=== PATIENT | male | born 1955 | race Caucasian/White ===

== ENCOUNTER 2021-06-16 00:54 | Day surgery (SDC) | payer OTHER, SELFPAY ==
[2021-06-03 13:36] VITALS: BMI 33.5
[2021-06-16 07:51] VITALS: BP 154/104; PULSE 100; RESP 18; TEMP 36.1; O2SAT 95; BMI 31.8
[2021-06-16] MEDS: LACTATED RINGERS 1,000 ML 150 ML IV CONT (08:01)
--- NOTE | 2021-06-16 08:13 | WPDGICN ---
Assessment and Plan Assessment and plan (1) History of colon polyps: Code(s): Z86.010 - Personal history of colonic polyps Status: Acute Assessment and Plan: Patient has a prior history of colon polyps. Plan is for surveillance colonoscopy now and it continued intervals in the future. GI Consult Note Consult date/time: 06/16/21 08:13 HPI: Tanvir Land is a 66 year old male Presents for screening colonoscopy. Patient has a prior history of colon polyps. Patient's current weight appetite and bowel movements are normal. He denies abdominal pain. He has had no bleeding. His last exam was 5 years ago. Review of Systems Review of Systems: All systems reviewed & are unremarkable except as noted in HPI and below [facility] Family History Family History (Updated 06/06/16 @ 08:49 by DOCTOR UNKNOWN) Sibling Family history of aortic aneurysm Family history of genetic disorder Other Acute myocardial infarction Family history of cardiovascular disease Social History Social History (Updated 05/30/21 @ 14:23 by Aurea Munroe MA) Smoking status: Never smoker Second hand tobacco smoke exposure: No Alcohol intake: current Drinks per week: 5 Alcohol use details: Whisky Substance use: never Substance use type: does not use Living arrangements: with family 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 Gender identity (if verbalized by the patient): Male Sexual Orientation (if Verbalized by the Patient): Straight or Heterosexual Spiritual care concerns: No Agree to blood products: Yes Meds Home Medications and Allergies Home Medications Medication Instructions Recorded Confirmed Type atorvastatin 10 mg tablet 10 mg PO DAILY 05/30/21 06/03/21 History benazepril 20 mg tablet 40 mg PO DAILY 05/30/21 06/03/21 History prednisone 10 mg tablet See Rx Instructions PO DAILY #52 05/30/21 06/03/21 Rx tablet Allergies Allergy/AdvReac Type Severity Reaction Status Date / Time No Known Allergies Allergy Verified 06/16/21 07:50 Vital Signs Vital Signs - 24 hr 06/16/21 07:51 Temperature 97 F L Pulse Rate 100 Respiratory Rate 18 Blood Pressure 154/104 H Pulse Oximetry 95 Exam Narrative: Physical exam reveals patient be alert. Vital signs stable. HEENT exam is unremarkable. Patient is anicteric. Lungs are clear to auscultation and percussion. Heart is without murmur or extra sounds. Abdomen bowel sounds present soft nontender with no hepatosplenomegaly. Digital external rectal exam is normal.
--- NOTE | 2021-06-16 08:46 | P.PNAN_ITS ---
Anes - Initial Pre Proc Eval Procedure: Operation Date: 06/16/21 09:00 Proposed Procedures p Screening Colonoscopy - Calvin Boggs MD Date/Time: 06/16/21 08:46 Surgeon: Calvin Boggs MD Pre Op Diagnosis: neoplasm screening, hx of colon polyps Patient Data Age: 66 Gender: M Height: 1.8 m Weight: 103.6 kg Last Vital Signs Temp 97 F L 06/16/21 07:51 Pulse 100 06/16/21 07:51 Resp 18 06/16/21 07:51 BP 154/104 H 06/16/21 07:51 Pulse Ox 95 06/16/21 07:51 Allergies Allergy/AdvReac Type Severity Reaction Status Date / Time No Known Allergies Allergy Verified 06/16/21 07:50 Home Medications Medication Instructions Recorded Confirmed Type atorvastatin 10 mg tablet 10 mg PO DAILY 05/30/21 06/03/21 History benazepril 20 mg tablet 40 mg PO DAILY 05/30/21 06/03/21 History prednisone 10 mg tablet See Rx Instructions PO DAILY #52 05/30/21 06/03/21 Rx tablet Patient hx anesthesia problems: none Family hx anesthesia problems: none Results Review: All pre-operative results and documents have been reviewed as part of the pre-operative evaluation. [facility] Past Medical History Medical History (Updated 06/16/21 @ 08:43 by Kai Ray MD) Hyperlipidemia Hypertension Family History Family History (Updated 06/06/16 @ 08:49 by DOCTOR UNKNOWN) Sibling Family history of aortic aneurysm Family history of genetic disorder Other Acute myocardial infarction Family history of cardiovascular disease Social History Social History (Updated 05/30/21 @ 14:23 by Aurea Munroe MA) Smoking status: Never smoker Second hand tobacco smoke exposure: No Alcohol intake: current Drinks per week: 5 Alcohol use details: Whisky Substance use: never Substance use type: does not use Living arrangements: with family 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 Gender identity (if verbalized by the patient): Male Sexual Orientation (if Verbalized by the Patient): Straight or Heterosexual Spiritual care concerns: No Agree to blood products: Yes Anes - Eval Final PreProcedure Day of Procedure 06/16/21 08:46 Patient weight: obese Heart: regular rate and rhythm Lungs: clear to auscultation Airway: Mallampati scale class III Neurological: alert and oriented Last oral intake: >/= 8 hours ASA classification: III Emergent: no Anesthetic plan: proceed Anesthesia type and monitoring: general GIVS and standard monitoring Results Review: All pre-operative results and documents have been reviewed as part of the pre-operative evaluation. Informed Consent: The patient's anesthetic plan and its attendant risks and benefits were discussed with the patient/family/POA. Questions were solicited and answers provided to the satisfaction of the patient/family/POA.
[2021-06-16 09:16] VITALS: BP 124/80; PULSE 77; RESP 18; O2SAT 95
[2021-06-16 09:25] VITALS: BP 139/97; PULSE 72; RESP 13; O2SAT 100
[2021-06-16 09:26] VITALS: BP 122/83; PULSE 83; RESP 20; O2SAT 97
== END 2021-06-16 09:48 | disposition home or self-care (01) ==
PROVIDERS: PCP Family Medicine Adolescent Medicine; Visit Provider Internal Medicine Gastroenterology
PROC: 0DJD8ZZ Inspection of Lower Intestinal Tract, Via Natural or Artificial Opening Endoscopic (ICD-10-PCS; CPT 45378; principal; 2021-06-16 09:00)
DX: Z12.11 Encounter for screening for malignant neoplasm of colon (principal); D12.2 Benign neoplasm of ascending colon; D12.3 Benign neoplasm of transverse colon; K64.8 Other hemorrhoids
CPT/HCPCS: 45385; 88305; J2704; J7120

== ENCOUNTER 2024-11-25 14:09 | Outpatient (CLI) | payer MEDICARE, SELFPAY ==
--- NOTE | ~2024-11-25 | XR_ITS ---
Right wrist Technique: PA, oblique, lateral, and ulnar deviation views were obtained. Clinical History: Pain Findings: No acute fracture or dislocation is seen. Osseous alignment is anatomic. Joint spaces are p reserved. Soft tissues are unremarkable. Impression: Unremarkable right wrist radiographs. Reviewed, dictated and finalized at location . Impression: Unremarkable right wrist radiographs.
== END 2024-11-25 14:10 | disposition home or self-care (01) ==
LOC: MICIMG 14:13
PROVIDERS: PCP Family Medicine Adolescent Medicine; Visit Provider Family Medicine Adolescent Medicine
DX: M25.531 Pain in right wrist (principal)
CPT/HCPCS: 73110